=== PATIENT | female | born 1945 | race Caucasian/White ===

== ENCOUNTER 2021-04-14 07:34 | Inpatient (IN) ==
--- NOTE | 2021-04-13 09:25 | Anesthesiology Consultation ---
Date of Service April 13, 2021 Assessment & Plan (1) Encounter for pre-operative examination: Chart Review Chart Review: Acceptable Risk for Surgery and Patient NOT seen in Pre Admission Testing Per nursing assessment 04/13/21, pt lives close to [facility]. No known Covid positive contacts or Covid related symptoms. No known Covid infection in the past 90 days. Pt is vaccinated for Covid. Covid test 04/09/21= negative Pt seen by PCP 04/09/21= seen for pre op for surgery on back. "Based on today's exam, no contraindications to proposed surgery." History Surgery Operation Date: 04/14/21 09:55 Proposed Procedures p L4-S1 Decompression Fusion, Spinal Cord Monitoring - Brian Morales DO Height/Weight Height: 5 ft 2 in Weight: 74.843 kg Allergies Allergy/AdvReac Type Severity Reaction Status Date / Time amoxicillin Allergy Mild Hives Verified 04/13/21 07:43 codeine AdvReac Mild increases Verified 04/13/21 07:43 anxiety Medications Home Medications Medication Instructions Recorded Confirmed Last Taken alprazolam 1 mg tablet (Xanax) 1 mg PO TID PRN 04/13/21 04/13/21 Unknown cholecalciferol (vitamin D3) 50 50 mcg PO QAM 04/13/21 04/13/21 Unknown mcg (2,000 unit) capsule (Vitamin D3) clonazepam 1 mg tablet (Klonopin) 1 mg PO HS 04/13/21 04/13/21 Unknown desvenlafaxine succinate 100 mg 100 mg PO QAM 04/13/21 04/13/21 Unknown tablet,extended release 24 hr (Pristiq) ergocalciferol (vitamin D2) 1,250 1,250 mcg PO WK 04/13/21 04/13/21 Unknown mcg (50,000 unit) capsule (Vitamin D2) levothyroxine 50 mcg capsule 50 mcg PO QAM 04/13/21 04/13/21 Unknown lisinopril 10 mg tablet 10 mg PO BID 04/13/21 04/13/21 Unknown spironolactone 25 mg tablet 25 mg PO BID 04/13/21 04/13/21 Unknown Past Medical History Medical History Anxiety Chronic back pain DDD due to arthritis Depression Hypertension Hypothyroidism Osteoarthritis Sleep apnea Cannot tolerate CPAP Past Surgical History Surgical History History of knee replacement procedure of left knee History of knee replacement procedure of right knee Hx laparoscopic cholecystectomy Hx of bilateral cataract extraction Hx of gastric bypass over 20 years ago Social History Smoking Status: Never smoker Do You Dip or Chew Tobacco: No Hx Alcohol Use: Yes Alcohol type: wine alcohol intake frequency: holidays/special occasions only Hx Substance Use: No substance use type: does not use Lab Results Anesthesia Preop Results Results Anesthesia Widget: WBC 7.31 K/uL (4.8-10.8) 03/31/21 Hgb 14.4 g/dL (12.0-16.0) 03/31/21 Hct 43.2 % (37-47) 03/31/21 Plt 238 K/uL (130-400) 03/31/21 Na 136 mmol/L (136-145) 03/31/21 K 4.5 mmol/L (3.5-5.1) 03/31/21 Cl 103 mmol/L (98-107) 03/31/21 CO2 27 mmol/L (21-32) 03/31/21 BUN 16 mg/dl (7-18) 03/31/21 Creat 0.73 mg/dl (0.6-1.2) 03/31/21 Glucose Level 93 mg/dl (70-99) 03/31/21 PT 10.4 Seconds (9.0-12.0) 03/31/21 INR 1.0 (0.9-1.1) 03/31/21 Urine Color Yellow 03/31/21 Urine Appearance Clear (Clear) 03/31/21 Urine pH 6.0 (4.5-7.5) 03/31/21 Urine Specific Julian 1.016 (1.000-1.030) 03/31/21 Urine Protein Negative (Negative) 03/31/21 Urine Glucose (UA) Negative (Negative) 03/31/21 Urine Ketones Negative (Negative) 03/31/21 Urine Blood Negative (Negative) 03/31/21 Urine Nitrite Negative (Negative) 03/31/21 Urine Bilirubin Negative (Negative) 03/31/21 Urine Urobilinogen Positive (Negative) H 03/31/21 Urine Leukocyte Esterase Negative (Negative) 03/31/21 Blood Type B Positive 03/31/21 Antibody Screen NEGATIVE 03/31/21 Testing Electrocardiogram Date: 03/31/21 SR with frequent PVCs at 78 bpm. Otherwise normal EKG per cardio. Chest X-Ray Date: 03/31/21 Findings: + NAD Linear subsegmental left suprahilar opacities suggestive of atelectasis/scarring.
[~2021-04-14 07:34] MED LIST: ACETAMINOPHEN 500 MG TAB PO SCH; CLINDAMYCIN 600 MG/54 ML BAG IV SCH; CeleBREX 200 MG CAP PO SCH; GABAPENTIN 300 MG CAP PO SCH; LR 15ML/HR IV SCH
[2021-04-14] MEDS ORDERED: LABETALOL HCL IV 5 MG/ML 20ML IV PRN (07:58)
[2021-04-14] MEDS ORDERED: ePHEDrine sulfate 50 MG/ML AMP IV PRN (07:58)
[2021-04-14] MEDS ORDERED: PHENYLEPHRINE 100MCG/ML 5ML SYR IV PRN (07:58)
[2021-04-14] MEDS ORDERED: ATROPINE SULFATE 0.1 MG/ML 10ML SYR IV PRN (07:58)
[2021-04-14] MEDS ORDERED: MEPERIDINE HCL 25 MG/ML CARP/VIAL IV PRN (07:58)
[2021-04-14] MEDS ORDERED: HYDROmorphone INJ 1 MG/ML SYRINGE IV PRN ×2 (07:58→13:54)
[2021-04-14] MEDS ORDERED: fentaNYL citrate 100 MCG/2 ML VIAL IV PRN (07:58)
[2021-04-14] MEDS ORDERED: ONDANSETRON INJ 2 MG/ML 2 ML VIAL IV PRN ×2 (07:58→13:54)
[2021-04-14 09:12] LABS: Partial Thromboplastin Time 27.3 Seconds (21.0-31.0)
--- NOTE | 2021-04-14 10:12 | History & Physical Bridge Note ---
Date of Service April 14, 2021 History & Physical Bridge Note I have examined the patient, reviewed the History & Physical and in the interval since the performance of the History & Physical I have noted the following changes of clinical significance: no changes noted
--- NOTE | 2021-04-14 10:13 | History & Physical Report ---
Date of Service April 14, 2021 Assessment & Plan (1) Neurogenic claudication due to lumbar spinal stenosis: History of Present Illness Chief Complaint: Back and leg pain Primary Care Provider: NO PCP This is a 75-year-old female who presents with chronic persistent back and leg pain after failing course of nonoperative care she is here for surgical invention. Allergies Allergy/AdvReac Type Severity Reaction Status Date / Time amoxicillin Allergy Mild Hives Verified 04/14/21 08:41 codeine AdvReac Mild increases Verified 04/14/21 08:41 anxiety Home Medications Medication Instructions Recorded Confirmed Type alprazolam 1 mg tablet (Xanax) 1 mg PO TID PRN 04/13/21 04/14/21 History cholecalciferol (vitamin D3) 50 50 mcg PO QAM 04/13/21 04/14/21 History mcg (2,000 unit) capsule (Vitamin D3) clonazepam 1 mg tablet (Klonopin) 1 mg PO HS 04/13/21 04/14/21 History desvenlafaxine succinate 100 mg 100 mg PO QAM 04/13/21 04/14/21 History tablet,extended release 24 hr (Pristiq) ergocalciferol (vitamin D2) 1,250 1,250 mcg PO WK 04/13/21 04/14/21 History mcg (50,000 unit) capsule (Vitamin D2) levothyroxine 50 mcg capsule 50 mcg PO QAM 04/13/21 04/14/21 History lisinopril 10 mg tablet 10 mg PO BID 04/13/21 04/14/21 History spironolactone 25 mg tablet 25 mg PO BID 04/13/21 04/14/21 History (Aldactone) Past Med/Surg History Medical History Anxiety Chronic back pain DDD due to arthritis Depression Hypertension Hypothyroidism Osteoarthritis Sleep apnea Cannot tolerate CPAP Surgical History History of knee replacement procedure of left knee History of knee replacement procedure of right knee Hx laparoscopic cholecystectomy Hx of bilateral cataract extraction Hx of gastric bypass over 20 years ago Social History Smoking Status: Never smoker Second Hand Exposure: No; Do You Dip or Chew Tobacco: No; Tobacco Cessation Education Requested by Patient: No Hx Alcohol Use: Yes Alcohol type: wine Hx Substance Use: No Preferred Language: Martiniquais Communication Ability: Effective Sash Clamp Operator Required: No Beliefs That Will Affect Care: None Current Living Situation: Spouse Other Information That Helps Us Care for You: No Feels Safe at Home: Yes Safety Concerns: Feels Safe At This Time Physical Exam Physical Exam: Patient alert and oriented Heart regular in rhythm Lungs clear to auscultation Results & Data ([facility]) Vital Signs (Past 12 Hours) Vital Signs Temp Pulse Resp BP Pulse Ox 04/14/21 08:45 37.1 C 83 20 182/108 H 96
[2021-04-14] MEDS ORDERED: EPINEPHrine INJ 1 MG/ML AMP ONE (10:29)
[2021-04-14] MEDS ORDERED: BUPIVACAINE 0.5 % 5 MG/1 ML MPF 30ML VIAL ONE (10:29)
[2021-04-14] MEDS ORDERED: GLYCOPYRROLATE 0.2 MG/ML VIAL ONE ×2 (10:30→12:21)
[2021-04-14] MEDS ORDERED: ONDANSETRON INJ 2 MG/ML 2 ML VIAL ONE (10:30)
[2021-04-14] MEDS ORDERED: HYDROmorphone INJ 2 MG/ML SYR/VIAL ONE (10:30)
[2021-04-14] MEDS ORDERED: LIDOCAINE 2% 2 ML VIAL/AMP(20MG/ML) INFIL ONE (10:30)
[2021-04-14] MEDS ORDERED: DEXAMETHASONE SOD INJ 4 MG/ML VIAL ONE (10:30)
[2021-04-14] MEDS ORDERED: NEOSTIGMINE METHYLSULFATE 1 MG/ML 10ML VIAL ONE (10:30)
[2021-04-14] MEDS ORDERED: ROCURONIUM BROMIDE 10 MG/ML 5 ML VIAL IV ONE (10:30)
[2021-04-14] MEDS ORDERED: PROPOFOL IV EMULSION 10 MG/ML 20 ML VIAL IV ONE (10:30)
--- NOTE | 2021-04-14 10:39 | History & Physical Bridge Note ---
Date of Service April 14, 2021 History & Physical Bridge Note I have examined the patient, reviewed the History & Physical and in the interval since the performance of the History & Physical I have noted the following changes of clinical significance: no changes noted Lumbar decompression fusion L4-S1
[2021-04-14] MEDS ORDERED: FLOSEAL HEMOSTATIC MATRIX 10ML TOP ONE (11:21)
--- NOTE | 2021-04-14 12:30 | Operative Report ---
Post Operative Report Pre & Post Diagnosis Operation Date: 04/14/21 09:55 Pre-Op Diagnosis: Intervertebral Disc Disorders with Radiculopathy Post-Op Diagnosis: Intervertebral Disc Disorders with Radiculopathy I identified the patient and participated in the time-out.: Yes Procedure Operation Date: 04/14/21 09:55 Actual Procedures #1 lumbar decompression with bilateral medial facetectomies and foraminotomies L3-4, L4-5 and L5-S1. #2 posterior spinal fusion L4-5 L5-S1. #3 placed posterior instrumentation L4-5 L5-S1. #4 interbody fusion L4-5 L5-S1. #5 placement peek cage 9 x 22 mm at L4-5 and 7 x 22 mm at L5-S1. #6 placement locally harvested morselized autograft in the posterior gutters. #7 placement I factor in the interbody space in infuse combined with cement in the posterior gutters. Surgeon Brian Morales, DO [employer] Mounter Ana Hung Estimated Blood Loss 75 Findings Consistent with Post-Op Diagnosis Specimens None Indications This is a 75-year-old female who presents emergency diagnosis after since course of nonoperative care she is here for surgical invention. Description of Procedure Patient was met with identified informed consent obtained. Patient was then taken to the operative suite underwent a patient placed in a prone position adjustable top Jamie frame. All bony prominences well-padded eyes inspected to ensure no external pressure placed upon the. This point the lumbar spine was prepped and draped in normal sterile fashion. Sharp dissection with the assistance of Bovie cautery from the abdomen exposing the lamina and transverse process of L4-L5 and sacral ala bilaterally. From caudal cephalad fashion complete laminectomy L5 L4 partial laminectomy L3 was performed including bilateral medial facetectomies and foraminotomies addressing severe spinal stenosis. Pedicle screws were then placed in L4-L5 and S1 levels bilaterally with assistance fluoroscopy the proper sized denise placed. Bilateral transforaminal portion left complete discectomy of L5-S1 was performed endplates curetted to subcortically bone and 7 x 22 mm peek cage filled with I factor tapped position. Then proceeded to L4-L5 transforaminal portion left complete discectomy was performed endplates curetted to subcortically bone and a 9 x 22 mm peek cage filled I factor tapped in position. The rods were locked in final position bilaterally. The transverse processes of L4-L5 and S1 levels were then burred to subcortically bone. Infuse collagen sponge mass graft local autograft was placed in the posterior gutters. 15 round CAMILLE drain inserted. The incision was then closed with 1 Vicryl to fascia 2-0 Vicryl subcutaneously and 4 Monocryl for final skin closure. Steri-Strips dressings placed. Patient to continue PACU stable condition. Please note spinal cord monitoring was utilized at the procedure no changes noted. Lastly Ana Hung was present at the entire surgery: Patient positioning complex portions of the surgery and final skin closure. I attest to the content of the Intraoperative Record and any orders documented therein. Any exceptions are noted below.
--- NOTE | 2021-04-14 13:00 | Fluoroscopy Report ---
FL lumbar spine 2-3V CLINICAL HISTORY: L4-S1 DECOMPRESSION, FUSION COMPARISON STUDY: None. FLUOROSCOPY TIME: 25 seconds. FLUOROSCOPIC IMAGES: 2 FINDINGS: Fluoroscopy was provided during L4-L5 and L5-S1 discectomies with interbody spacer placemen t. Posterior decompression is noted. There are bilateral pedicle screws at the L4, L5 and S1 levels. There is slight loss of height of the superior endplate of L4. IMPRESSION: Fluoroscopy provided during L4-S1 discectomy, posterior decompression and bilateral pedi danuta screw fusion. ACT 112: Negative or not required by law. Electronically signed by: Franc Hurst M.D. 04/14/2021 12:59 PM
[2021-04-14] MEDS ORDERED: LORazepam 0.5 MG TAB PO PRN (13:54)
[2021-04-14] MEDS ORDERED: ACETAMINOPHEN 500 MG TAB PO PRN (13:54)
[2021-04-14] MEDS ORDERED: ALPRAZolam 0.5 MG TABLET PO PRN (13:54)
[2021-04-14] MEDS ORDERED: FAMOTIDINE 20 MG TAB PO PRN (13:54)
[2021-04-14] MEDS ORDERED: PROMETHAZINE HCL 12.5 MG in SODIUM CHLORIDE 0.9% 50 ML IV PRN (13:54)
[2021-04-14] MEDS ORDERED: MAGNESIUM HYDROXIDE SUSP 30 ML UDC PO PRN (13:54)
[2021-04-14] MEDS ORDERED: bisacodyL 10 MG SUPP PR PRN (13:54)
[2021-04-14] MEDS ORDERED: NALOXONE HCL 0.4 MG/1 ML VIAL/CARP IV PRN (13:54)
[2021-04-14] MEDS ORDERED: METOCLOPRAMIDE HCL INJ 5 MG/ML 2 ML VIAL IV PRN (13:54)
[2021-04-14] MEDS ORDERED: ALUMINUM/MAGNESIUM SUSP 30 ML UDC PO PRN (13:54)
[2021-04-14] MEDS ORDERED: DO NOT ADMINISTER FLU VACCINE PRN (13:54)
[2021-04-14] MEDS ORDERED: LORazepam 0.5 MG/1 ML VIAL IV PRN (13:54)
[2021-04-14] MEDS ORDERED: SOD PHOSPHATE/SOD BIPHOSPHATE ENEMA 132 ML BTL PR PRN (13:54)
[2021-04-14] MEDS ORDERED: ONDANSETRON 4 MG OD TAB PO PRN (13:54)
[2021-04-14] MEDS ORDERED: oxyCODONE HCL IR 5 MG TAB (IMMEDIATE RELEASE) PO PRN (13:54)
[2021-04-14] MEDS ORDERED: diphenhydrAMINE Capsule 25 MG CAP PO PRN (13:54)
[2021-04-14] MEDS ORDERED: HYDROmorphone INJ 0.5 MG/0.5 ML SYR IV PRN (13:54)
[2021-04-14] MEDS ORDERED: DO NOT ADMINISTER PNEUMOCOCCAL VACCINE PRN (13:54)
[2021-04-14] MEDS ORDERED: hydrOXYzine HCl 25 MG TAB PO PRN (13:54)
[2021-04-14] MEDS ORDERED: ACETAMINOPHEN 1,000 MG/100 ML VIAL IV PRN (13:54)
[2021-04-14] MEDS ORDERED: LACTATED RINGER'S 1,000 ML IV SCH (13:54)
--- NOTE | 2021-04-14 13:56 | Anesthesiology Progress Note ---
Date of Service April 14, 2021 Anesthesia Post Procedure Vital Signs Vital Signs: Temp Pulse Pulse Resp BP BP Pulse Ox 04/14/21 13:30 91 H 12 151/78 H 98 04/14/21 13:20 36.3 C L 92 H 14 155/67 H 98 04/14/21 13:10 95 H 12 155/74 H 97 04/14/21 13:00 96 H 12 142/74 H 98 04/14/21 12:50 96 H 12 151/78 H 98 04/14/21 12:44 36.1 C L 97 H 12 162/84 H 98 04/14/21 08:45 37.1 C 83 20 182/108 H 96 Pain Intensity Left Buttock: Pain Intensity: 2 Transfer of Care Handoff Completed per policy Notes Mental Status: alert / awake / arousable and participated in evaluation Patient Amnestic to Procedure: Yes Nausea / Vomiting: adequately controlled Pain: adequately controlled Airway Patency, RR, SpO2: stable & adequate BP & HR: stable & adequate Hydration State: stable & adequate Anesthetic Complications: no major complications apparent and Pt Satisfied with anesthetic care
--- NOTE | 2021-04-14 14:45 | Hospitalist Consultation ---
Date of Consultation April 14, 2021 Assessment & Plan (1) Neurogenic claudication due to lumbar spinal stenosis: - POD#0 L3-L4, L4-L5, L5-S1 decompression and fusion by Dr. Morales - activity and wound care orders as per ortho - pain control with bowel regimen - PT/OT - monitor H/H for acute blood loss anemia and transfuse blood products PRN -EBL 75 cc (2) Hypertension: -BP mildly elevated, likely situational/due to pain -Continue lisinopril however hold spironolactone pending a.m. labs (3) Hypothyroidism: -Continue levothyroxine (4) DVT prophylaxis: -TEDs/SCDs as per spine Ortho Thank you for this consultation. We will follow the patient with you during their hospital stay. You can reach a member of the [facility] Hospitalist Team 27/02 via the [facility] Hospitalist role in [place] Text. Supervising Physician Co-Signing Physician Notes Pt was seen and examined. Agreed with Gris YOUNG exam, assessment and plan. 75-year-old female with PMH HTN, hypothyroidism, anxiety, s/p L3-L4, L4-L5, L5- S1 decompression and fusion by Dr. Morales. No post op complication. Continue pain control. Continue incentive spirometry. Will monitor H/H. Fall precaution. MD Tyshawn History of Present Illness Reason for Consultation: Postop medical management Requesting Physician: Dr. Morales Attending Physician: Dr. Villagran History of Present Illness 75-year-old female with PMH HTN, hypothyroidism, anxiety, and other problems listed below who is s/p L3-L4, L4-L5, L5-S1 decompression and fusion by Dr. Morales. Postoperatively, the patient is doing well. She reports her pain is well controlled. She denies numbness, tingling, weakness to lower extremities. No chest pain or shortness of breath. Denies abdominal pain or nausea. No lightheadedness or dizziness. Doe catheter is in place draining clear yellow urine. Allergies Allergy/AdvReac Type Severity Reaction Status Date / Time amoxicillin Allergy Mild Hives Verified 04/14/21 08:41 codeine AdvReac Mild increases Verified 04/14/21 08:41 anxiety Home Medications Medication Instructions Recorded Confirmed Type alprazolam 1 mg tablet (Xanax) 1 mg PO TID PRN 04/13/21 04/14/21 History cholecalciferol (vitamin D3) 50 50 mcg PO QAM 04/13/21 04/14/21 History mcg (2,000 unit) capsule (Vitamin D3) clonazepam 1 mg tablet (Klonopin) 1 mg PO HS 04/13/21 04/14/21 History desvenlafaxine succinate 100 mg 100 mg PO QAM 04/13/21 04/14/21 History tablet,extended release 24 hr (Pristiq) ergocalciferol (vitamin D2) 1,250 1,250 mcg PO WK 04/13/21 04/14/21 History mcg (50,000 unit) capsule (Vitamin D2) levothyroxine 50 mcg capsule 50 mcg PO QAM 04/13/21 04/14/21 History lisinopril 10 mg tablet 10 mg PO BID 04/13/21 04/14/21 History spironolactone 25 mg tablet 25 mg PO BID 04/13/21 04/14/21 History (Aldactone) oxycodone 5 mg tablet 5 mg PO Q6H PRN #30 tab 04/15/21 Rx tramadol 50 mg tablet 50 mg PO Q6H PRN #30 tab 04/15/21 Rx Patient History Medical History Anxiety Chronic back pain DDD due to arthritis Depression Hypertension Hypothyroidism Osteoarthritis Sleep apnea Cannot tolerate CPAP Surgical History History of knee replacement procedure of left knee History of knee replacement procedure of right knee Hx laparoscopic cholecystectomy Hx of bilateral cataract extraction Hx of gastric bypass over 20 years ago Social History Smoking Status: Never smoker Second Hand Exposure: No; Do You Dip or Chew Tobacco: No; Tobacco Cessation Education Requested by Patient: No Hx Alcohol Use: Yes Alcohol type: wine Hx Substance Use: No Preferred Language: Slovak Communication Ability: Effective 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 Required: No Beliefs That Will Affect Care: None marital status: Current Living Situation: Spouse Other Information That Helps Us Care for You: No Feels Safe at Home: Yes Safety Concerns: Feels Safe At This Time Assistive Devices: Walker Review of Systems Review of Systems: ROS per HPI, all other systems reviewed and negative Physical Exam Constitutional: WD/WN, vitals as above Eyes: PERRL, conjunctivae normal, anicteric sclerae ENMT: external ear and nose normal, oropharynx normal Respiratory: normal respiratory effort, lungs clear to auscultation Cardiovascular: Rate/Rhythm: regular rate and regular rhythm Vessels: normal peripheral pulses Extremities: no edema Gastrointestinal (Abdomen): normal bowel sounds, soft, nontender, no hepatosplenomegaly Musculoskeletal: no cyanosis or clubbing, extremities motor strength 5/5 S/p back surgery, surgical dressing dry and intact, drain in place draining bloody drainage, pedal pushes and pulls strong bilaterally Skin: no rashes, warm and dry Neurologic: PERRL, EOMI, accommodation nl, no face palsy, no dysarthria Psychiatric: A+Ox3, euthymic affect Genitourinary: Doe in place draining clear yellow urine Results & Data Results & Data ([facility]) Vital Signs (Past 12 Hours) Vital Signs Temp Pulse Pulse Resp BP BP Pulse Ox 04/14/21 13:30 91 H 12 151/78 H 98 04/14/21 13:20 36.3 C L 92 H 14 155/67 H 98 04/14/21 13:10 95 H 12 155/74 H 97 04/14/21 13:00 96 H 12 142/74 H 98 04/14/21 12:50 96 H 12 151/78 H 98 04/14/21 12:44 36.1 C L 97 H 12 162/84 H 98 04/14/21 08:45 37.1 C 83 20 182/108 H 96
[2021-04-14] MEDS: CLINDAMYCIN 600 MG in DEXTROSE 5% 50 ML IV SCH (18:09)
[2021-04-14] MEDS: clonazePAM 1 MG TAB PO SCH (20:02)
[2021-04-14] MEDS: lisinopril 10 MG TAB PO SCH (20:02)
[2021-04-14] MEDS: DOCUSATE SODIUM/SENNA 50/8.6MG TAB PO SCH (20:03)
[2021-04-14] MEDS ORDERED: SPIRONOLACTONE 25 MG TAB PO SCH (21:00)
[2021-04-15] MEDS: CLINDAMYCIN 600 MG in DEXTROSE 5% 50 ML IV SCH (02:08)
[2021-04-15] MEDS: POLYETHYLENE (MIRALAX) 17 GM PACK PO SCH ×4 (05:07→23:53)
[2021-04-15] MEDS: LEVOTHYROXINE SODIUM 50 MCG TABLET PO SCH (05:07)
[2021-04-15 06:57] LABS: Basophils # (auto) 0.01 K/uL (0-0.2); Basophils % (auto) 0.1 %; Hemoglobin 10.3 g/dL (12.0-16.0); Immature Granulocytes # (auto) 0.02 K/uL (0.00-0.02); Immature Granulocytes % (auto) 0.3 %; Lymphocytes # (auto) 1.23 K/uL (1.2-3.4); Lymphocytes % (auto) 16.2 %; Mean Corpuscular Hemoglobin 30.8 pg (25-34); Mean Corpuscular Hgb Conc 32.2 g/dL (32-36); Mean Corpuscular Volume 95.8 fL (80-100); Mean Platelet Volume 9.1 fL (7.4-10.4); Monocytes # (auto) 0.95 K/uL (0.11-0.59); Monocytes % (auto) 12.5 %; Neutrophils # (auto) 5.39 K/uL (1.4-6.5); Neutrophils % (auto) 70.9 %; Platelet Count 202 K/uL (130-400); RDW Coefficient of Variation 14.3 % (11.5-14.5); RDW Standard Deviation 50.4 fL (36.4-46.3); Red Blood Count 3.34 M/uL (4.2-5.4)
[2021-04-15 07:29] LABS: BUN Creatinine Ratio 11.1 (10-20); Calcium 7.6 mg/dl (8.5-10.1); Creatinine Clr Calc Pharmacy 56.4 ml/min; Est GFR (African American) 81.1 ml/min; Potassium 4.6 mmol/L (3.5-5.1)
[2021-04-15] MEDS: lisinopril 10 MG TAB PO SCH ×2 (08:16→20:07)
[2021-04-15] MEDS: CHOLECALCIFEROL 1,000 UNITS 25 MCG TAB PO SCH (08:16)
--- NOTE | 2021-04-15 09:09 | Hospitalist Progress Note ---
Date of Service April 15, 2021 Assessment & Plan (1) Neurogenic claudication due to lumbar spinal stenosis: Plan: POD#1 L3-L4, L4-L5, L5-S1 decompression and fusion by Dr. Morales Per ortho for pain control, wound care, anticoagulation and activities Monitor H&H (Hgb 10.3 today from pre-op hgb 14.4) -no lightheadedness, palpitations, CP or SOB Continue incentive spirometry, PT/OT when appropriate (2) Hypertension: Plan: BP normotensive Continue lisinopril, plan to resume spironolactone tomorrow morning (3) Hypothyroidism: Plan: Continue levothyroxine (4) DVT prophylaxis: Plan: TEDs/SCDs as per spine Ortho Patient seen in collaboration with Dr. Villagran. Please see addendum. Thank you for this consultation. We will follow the patient with you during their hospital stay. You can reach a member of the [facility] Hospitalist Team 27/02 via the [facility] Hospitalist role in [place] Text. Admission and Anticipated Discharge Date Admission Date: April 14, 2021 Supervising Physician Co-Signing Physician Notes Pt was seen and examined. Agreed with Elsa PLOK exam, assessment and plan. 75-year-old female with PMH HTN, hypothyroidism, anxiety, s/p day#1 L3-L4, L4- L5, L5-S1 decompression and fusion by Dr. Morales. No post op complication. Continue pain control. Continue incentive spirometry. Fall precaution. MD Tyshawn Subjective Patient seen and examined in 377-1. Feeling well today with minimal surgical site discomfort. No paresthesias or pain in BLE. Ambulated in the halls with PT without issue. No fever, chills, lightheadedness, palpitations, CP, SOB, nausea, vomiting, abdominal pain, dysuria, diarrhea or constipation. Urinated without issue since gonzalez was removed this morning. Passing flatus but no post op bowel movement yet. Review of Systems Review of Systems: At least ten systems reviewed and negative except as noted in the HPI. Physical Exam Physical Exam: Constitutional: WD/WN, vitals as above Eyes: PERRL, conjunctivae normal, anicteric sclerae ENMT: external ear and nose normal, oropharynx normal Respiratory: normal respiratory effort, lungs clear to auscultation Cardiovascular: Rate/Rhythm: regular rate and regular rhythm Vessels: normal peripheral pulses Extremities: no edema Gastrointestinal (Abdomen): normal bowel sounds, soft, nontender, no hepatosplenomegaly Musculoskeletal: no cyanosis or clubbing, extremities motor strength 5/5 S/p back surgery, surgical dressing c/d/i, CAMILLE drain visualized Skin: no rashes, warm and dry Neurologic: PERRL, EOMI, accommodation nl, no face palsy, no dysarthria Psychiatric: A+Ox3, euthymic affect Results & Data Results & Data ([facility]) Vital Signs (Past 12 Hours) Vital Signs Temp Pulse Resp BP Pulse Ox 04/15/21 07:39 36.7 C 71 16 117/69 93 04/15/21 03:00 37 C 74 18 113/69 98 04/14/21 22:51 36.7 C 72 18 132/80 97 Laboratory Results Short CBC 04/15/21 Range/Units 06:36 WBC 7.60 (4.8-10.8) K/uL Hgb 10.3 L (12.0-16.0) g/dL Hct 32.0 L (37-47) % Plt Count 202 (130-400) K/uL BMP 04/15/21 06:36 Sodium 131 L Potassium 4.6 Chloride 98 Carbon Dioxide 30 BUN 9 Creatinine 0.83 Glucose 102 H Calcium 7.6 L Diagnostic Findings Lumbar Spine X-Ray 04/14/21 09:55 [place] lumbar spine 2-3V CLINICAL HISTORY: L4-S1 DECOMPRESSION, FUSION COMPARISON STUDY: None. FLUOROSCOPY TIME: 25 seconds. FLUOROSCOPIC IMAGES: 2 FINDINGS: Fluoroscopy was provided during L4-L5 and L5-S1 discectomies with interbody spacer placement. Posterior decompression is noted. There are bilateral pedicle screws at the L4, L5 and S1 levels. There is slight loss of height of the superior endplate of L4. IMPRESSION: Fluoroscopy provided during L4-S1 discectomy, posterior decompression and bilateral pedicle screw fusion. ACT 112: Negative or not required by law. Electronically signed by: Franc Hurst M.D. 04/14/2021 12:59 PM
--- NOTE | 2021-04-15 10:01 | Orthopedic Progress Note ---
Date of Service April 15, 2021 Assessment & Plan (1) Neurogenic claudication due to lumbar spinal stenosis: Plan: At this time we will continue physical therapy monitor CAMILLE output hopefully discharge home the next few days. Admission and Anticipated Discharge Date Admission Date: April 14, 2021 Subjective Back pain controlled leg pain markedly improved Physical Exam Physical Exam: Patient appears comfortable. Is distracted testing. Results & Data ([facility]) Vital Signs (Past 12 Hours) Vital Signs Temp Pulse Resp BP Pulse Ox 04/15/21 07:39 36.7 C 71 16 117/69 93 04/15/21 03:00 37 C 74 18 113/69 98 04/14/21 22:51 36.7 C 72 18 132/80 97
[2021-04-15] MEDS: traMADol HCL 50 MG TABLET PO PRN (17:43)
[2021-04-15] MEDS: DOCUSATE SODIUM/SENNA 50/8.6MG TAB PO SCH (20:07)
[2021-04-15] MEDS: clonazePAM 1 MG TAB PO SCH (20:07)
[2021-04-16] MEDS: traMADol HCL 50 MG TABLET PO PRN (03:12)
[2021-04-16] MEDS: POLYETHYLENE (MIRALAX) 17 GM PACK PO SCH ×2 (06:00→12:30)
[2021-04-16] MEDS: LEVOTHYROXINE SODIUM 50 MCG TABLET PO SCH (06:00)
[2021-04-16 06:10] LABS: Hematocrit (blood only) 32.8 % (37-47); Hemoglobin 10.6 g/dL (12.0-16.0); Mean Corpuscular Hemoglobin 30.8 pg (25-34); Mean Corpuscular Hgb Conc 32.3 g/dL (32-36); Mean Corpuscular Volume 95.3 fL (80-100); Mean Platelet Volume 9.2 fL (7.4-10.4); Platelet Count 191 K/uL (130-400); RDW Coefficient of Variation 14.5 % (11.5-14.5); RDW Standard Deviation 50.4 fL (36.4-46.3); Red Blood Count 3.44 M/uL (4.2-5.4); White Blood Count 7.15 K/uL (4.8-10.8)
[2021-04-16 06:38] LABS: Calcium 8.1 mg/dl (8.5-10.1); Creatinine Clr Calc Pharmacy 62.4 ml/min; Est GFR (African American) 91.7 ml/min; Est GFR (Non-African American) 79.1 ml/min; Potassium 4.2 mmol/L (3.5-5.1)
[2021-04-16] MEDS: CHOLECALCIFEROL 1,000 UNITS 25 MCG TAB PO SCH (08:58)
[2021-04-16] MEDS: lisinopril 10 MG TAB PO SCH (08:59)
[2021-04-16] MEDS ORDERED: dexAMETHasone 8 MG in SYRINGE 0 ML IV SCH (09:00)
--- NOTE | 2021-04-16 11:33 | Discharge Summary ---
Date of Service April 16, 2021 Admission HPI Per Admitting Provider This is a 75-year-old female who presents with chronic persistent back and leg pain after failing course of nonoperative care she is here for surgical invention. Principal Diagnosis Lumbar spinal stenosis with neurogenic medication Discharge Data Allergies Allergy/AdvReac Type Severity Reaction Status Date / Time amoxicillin Allergy Mild Hives Verified 04/14/21 08:41 codeine AdvReac Mild increases Verified 04/14/21 08:41 anxiety Consultations 04/14/21 13:54 Consult Hospitalist Routine Procedures Performed Operation Date: 04/14/21 09:55 Actual Procedures p L4-S1 Decompression Fusion with Insertion of Interbodies, Application of Bone Morphogenetic Protein, Spinal Cord Monitoring(Not Applicable) - Brian vieira DO Ordered Studies 04/14/21 09:55 [place] lumbar spine 2-3V Routine Hospital Course (1) Neurogenic claudication due to lumbar spinal stenosis: Patient with lumbar decompression fusion trial as well as taken orthopedic for postop labor postop day 1 she was up and ambulating progressed postop #2 CAMILLE drain decreasing appropriately pain well controlled excellent strength testing subsequently discharged home. Discharge orders instructions from the chart for further review. Total Time Total Time Spent Total Time Spent (In Minutes): 20 minutes Discharge Plan Discharge Items Patient Disposition: Home - Self-Care Reason For Visit: Intervertebral Disc Disorders with Radiculopathy Discharge Diagnosis: Lumbar spinal stenosis with radiculopathy Activity: As commented below Non-emergency contact: Primary Care Provider Call non-emergency contact if: you have any medication questions Follow-up/Referrals: PCP,NO [Primary Care Provider] - Diet: Regular Addtl Attending Provider Instructions: ACTIVITY RECOMMENDATIONS: SELF CARE INSTRUCTIONS AFTER THORACIC/LUMBAR FUSIONS 1. You may walk to your tolerance. It is good exercise for your legs and back. Expect some back and intermittent leg aches and pains. 2. You may perform "counter-top" level activities (make a sandwich, isa with a project, etc.). 3. No bending or lifting of more than 10 pounds or back twisting of any nature (roll like a log when turning in bed). 4. You may ride in a car for 20-30 minutes at a time. No driving until after your first visit with your doctor. 5. Frequent changes of position and restricting sitting to 30 minutes at a time will help limit the amount of back spasms and stiffness you may experience. 6. You may discontinue the use of ambulatory aids (cane, crutches, etc.) once your strength and confidence allow. 7. You may income tax preparer the shower and let water strike your incision when you arrive home at least once daily. Do not take a tub bath, sit in a hot tub or go into a swimming pool until after your first recheck in the office. SPECIAL CARE INSTRUCTIONS: VERY IMPORTANT TO READ AND REVIEW A. Your surgical incision has been closed with a cosmetic suture under the skin that will dissolve in about 6 weeks. In 14 days, you can use a pair of clean scissors and cut the suture that is left outside of the skin at the ends of your incision. 1. The small skin tapes can be removed 7 days after surgery if they have not fallen off by that point. 2. You may keep the wound open to air as much as possible to promote healing after post-op day number 5 unless told otherwise by your doctor. 3. If you think the wound looks like it is becoming infected (redness or worsening drainage) and/or you are experiencing fever, chill or worsening back pain and muscle spasms, contact the office so that we may evaluate you as soon as possible. B. Complications are uncommon, but please contact us if you have any signs or symptoms of: 1. wound infection (fever higher than 102.5 degrees F, redness, separation of wound, drainage, or increasing pain from the incision) 2. blood clots in legs (pain, swelling, redness and warmth in legs) 3. urinary tract infection (fever higher than 102.5 degrees F, burning upon urination or increased frequency of urination) 4. nerve problems (inability to walk on your toes or heels, numbness, loss of bowel or bladder control) 5. any other symptoms that concern you C. Please call the office at if you have any concerns or questions about your operation or recovery. D. No smoking! Smoking drastically decreases the chance of a solid fusion. E. Do not take any anti-inflammatory medications (Indocin, Advil, Motrin, Aspirin, Naprosyn, etc.) as these may inhibit the chance of a solid fusion. Tylenol is okay to take for pain. MANAGING PAIN AFTER SPINAL SURGERY 1. Narcotic medication is intended for short-term use and will be provided for surgical pain. Surgical pain usually lasts for a period of 4-6 weeks. Narcotic medication includes Percocet, Vicodin, Darvocet, Tylenol #3 or Lortab. 2. Longer-term pain is more appropriately treated with non-narcotic medication such as Tylenol ES. 3. Muscle spasm is not appropriately treated with narcotics. Muscle relaxers such as Soma, Flexeril or Skelaxin can be used along with Tylenol ES. 4. Remember that we all live with some "aches and pains". This is not unusual or uncommon after an injury or as we get older. a. Back pain is expected and may include muscle spasms for 4 to 6 weeks after surgery. The pain should gradually improve. If the pain worsens for no apparent reason, please contact the office. b. Intermittent leg pain may also be experienced and should not be concerned about unless it worsens for no apparent reason. If so, please contact the office. 5. We will provide appropriate medication within the normal guidelines of their prescribed use. We will also be very cautious and aware of potential abuse and extended duration of patients' medication needs. a. Pain medications are for your comfort and to assist with sleep and rest so that the tissue can heal. They are not provided in order to return to normal activity and should not be used through the day. To do so or worsening pain at night can result from ongoing tissue damage and devel opment of tolerance to the prescribed medicine. 6. Please allow 2-3 days to process refills. Prescriptions will not be mailed but must be picked up at the office. FOLLOW UP VISIT: Keep your scheduled follow-up appointment. Any questions, please call the office at . Pending Studies at Discharge: No Stand-Alone Forms: [facility] [employer], Smoking Cessation Medications and DC Order Prescriptions: New oxycodone 5 mg tablet 5 mg PO Q6H PRN (Reason: pain, severe) Qty: 30 RF: 0 tramadol 50 mg tablet 50 mg PO Q6H PRN (Reason: pain, moderate) Qty: 30 RF: 0 Continued alprazolam [Xanax] 1 mg Tablet 1 mg PO TID PRN (Reason: Anxiety) RF: 0 clonazepam [Klonopin] 1 mg Tablet 1 mg PO HS RF: 0 spironolactone [Aldactone] 25 mg Tablet 25 mg PO BID RF: 0 lisinopril 10 mg Tablet 10 mg PO BID RF: 0 ergocalciferol (vitamin D2) [Vitamin D2] 1,250 mcg (50,000 unit) Capsule 1,250 mcg PO WK RF: 0 desvenlafaxine succinate [Pristiq] 100 mg Tablet Extended Release 24 Hr 100 mg PO QAM RF: 0 cholecalciferol (vitamin D3) [Vitamin D3] 50 mcg (2,000 unit) Capsule 50 mcg PO QAM RF: 0 levothyroxine 50 mcg Capsule 50 mcg PO QAM RF: 0 Discharge Orders: Discharge Order (Routine); Ordered 04/16/21 Ordered By: Brian Morales Admission Data Admit Date/Time: 04/14/21 12:33 Attending Provider: Brian Morales Admit Provider: Brian Morales Primary Care Provider: PCP,NO Other Providers: Caitlyn De Paz ; Aileen Villagran
--- NOTE | 2021-04-16 13:03 | Hospitalist Progress Note ---
Date of Service April 16, 2021 Assessment & Plan (1) Neurogenic claudication due to lumbar spinal stenosis: Plan: POD#2 L3-L4, L4-L5, L5-S1 decompression and fusion by Dr. Morales No postop complication Continue pain control, wound care, anticoagulation and activities Hgb stable Continue incentive spirometry Continue PT/OT fall precaution (2) Hypertension: Plan: Continue lisinopril and spironolactone on discharge BP stable (3) Hypothyroidism: Plan: Continue levothyroxine (4) DVT prophylaxis: Plan: TEDs/SCDs as per spine Ortho Thank you for this consultation. We will follow the patient with you during their hospital stay. You can reach a member of the [facility] 27/02 via the [facility] role in [place] [employer]. Admission and Anticipated Discharge Date Admission Date: April 14, 2021 Subjective Pt was seen and examined for post op follow up Lying in bed with no acute distress Pt said that she feels fine She walked with therapy today she is looking to go home today Denies any chest pain, palpitation, dizziness and SOB Review of Systems Review of Systems: All systems reviewed & are unremarkable except as noted in Subjective Physical Exam Physical Exam: General- No acute distress Head- atraumatic Eyes- PERRL, EOMI, ENT- oropharynx clear Neck- supple, no JVD Lungs- clear to auscultation Heart- regular rhythm; no murmur Abdomen- normal bowel sounds, soft, nontender Extremities- no calf tenderness Neuro- alert, oriented x 3; PERRL, EOMI; no facial palsy; no dysarthria Skin- warm & dry Results & Data Results & Data ([facility]) Vital Signs (Past 12 Hours) Vital Signs Temp Pulse Resp BP Pulse Ox 04/16/21 07:49 37.1 C 79 20 96/60 L 92
[2021-04-17] MEDS ORDERED: ERGOCALCIFEROL 50,000 UNITS 1250 MCG CAP PO SCH (09:00)
== END 2021-04-16 15:08 | disposition home or self-care (01) | DRG 454 ==
LOC: ASU 07:34 → 3N 12:33
DX: F41.9 Anxiety disorder, unspecified; I10 Essential (primary) hypertension; M48.062 Spinal stenosis, lumbar region with neurogenic claudication; E03.9 Hypothyroidism, unspecified; Z88.5 Allergy status to narcotic agent; F32.9 Major depressive disorder, single episode, unspecified; D62 Acute posthemorrhagic anemia